=== PATIENT | female | born 1985 | race Caucasian/White ===

== ENCOUNTER 2022-03-10 11:15 | Outpatient (CLI) | payer MEDICAID, SELFPAY ==
[2022-03-11 11:37] LABS: Cortisol, Serum 8.1 ug/dL
== END 2022-03-10 11:16 | disposition home or self-care (01) ==
LOC: LKVLAB 11:16
PROVIDERS: PCP Physician Assistant Medical; Visit Provider Family Medicine
DX: R63.5 Abnormal weight gain (principal); Z79.52 Long term (current) use of systemic steroids
CPT/HCPCS: 36415; 82533

== ENCOUNTER 2022-04-21 13:06 | Outpatient (CLI) | payer MEDICAID, SELFPAY ==
[2022-04-22 15:46] LABS: Chlamydia DNA Amplified* NOT DETECTED (No Detected); GC DNA Amplified* NOT DETECTED (No Detected)
== END 2022-04-21 13:07 | disposition home or self-care (01) ==
LOC: LKVREF 13:07
PROVIDERS: PCP Physician Assistant Medical; Visit Provider Nurse Practitioner Family
DX: N89.8 Other specified noninflammatory disorders of vagina (principal)
CPT/HCPCS: 87491; 87591

== ENCOUNTER 2022-08-26 08:29 | Outpatient (CLI) | payer MEDICAID, SELFPAY ==
[2022-08-26 14:03] LABS: Albumin* 4.9 g/dL (3.3-5.0); Chloride* 106 mmol/L (96-114); Potassium* 4.4 mmol/L (3.6-5.1); Sodium* 141 mmol/L (135-149)
[2022-08-26 14:05] LABS: Aspartate Amino Transferase* 24 U/L (12-35); Bilirubin Total* 0.6 mg/dL (0.1-1.5); Carbon Dioxide* 23 mmol/L (20-32); Creatinine* 0.6 mg/dL (0.5-1.5); Estimated Glomerular Filt Rate 120 ml/min
[2022-08-26 14:06] LABS: Alanine Aminotransferase* 25 U/L (4-35); Alkaline Phosphatase* 54 U/L (40-150); Blood Urea Nitrogen* 7 mg/dL (5-24); Calcium* 9.8 mg/dL (8.4-10.6); Glucose* 83 mg/dL (60-115); Total Protein* 7.7 g/dL (6.0-8.3)
[2022-08-26 14:08] LABS: Vitamin D 25 Hydroxy* 17 ng/mL (30-80)
== END 2022-08-26 08:30 | disposition home or self-care (01) ==
PROVIDERS: PCP Physician Assistant Medical; Visit Provider Family Medicine
DX: E55.9 Vitamin D deficiency, unspecified (principal); F41.8 Other specified anxiety disorders; G89.29 Other chronic pain
CPT/HCPCS: 80053; 82306; 84443

== ENCOUNTER 2022-09-09 12:45 | Outpatient (CLI) | payer MEDICAID, SELFPAY | END 2022-09-09 12:46 | disposition home or self-care (01) | LOC: LKVREF 09-10 14:39 | PROVIDERS: PCP Physician Assistant Medical; Visit Provider Registered Nurse | DX: J02.0 Streptococcal pharyngitis (principal); R30.0 Dysuria | CPT/HCPCS: 87086 ==

== ENCOUNTER 2022-09-11 13:28 | Emergency (ER) | payer MEDICAID, SELFPAY ==
[2022-09-11 13:33] VITALS: BP 136/90; PULSE 106; RESP 22; TEMP 36.8; O2SAT 99; BMI 31.6
--- NOTE | 2022-09-11 13:45 | CRLHL7_ITS ---
For Patients: As a result of the Century Cures Act, medical imaging exams and procedure reports are released immediately into your electronic medical record. You may view this report before your referring provider. If you have questions, please contact your health care provider. INDICATION: COUGH TECHNIQUE: Chest 2 views. COMPARISON: 12/25/20 FINDINGS: Cardiovascular and mediastinum: Heart size and vasculature are normal in caliber and appearance. Mediastinum is within normal limits. Lungs and pleural spaces: Lungs are clear. No sign of infiltrate or mass. No sign of pleural effusion. No pneumothorax. Bones and soft tissues: No significant findings. IMPRESSION: Unremarkable chest. Dictated by: Claus Lassiter MD @ 09/11/2022 14:44:24 (Electronically Signed)
--- NOTE | 2022-09-11 13:45 | CRLHL7_ITS ---
For Patients: As a result of the Century Cures Act, medical imaging exams and procedure reports are released immediately into your electronic medical record. You may view this report before your referring provider. If you have questions, please contact your health care provider. INDICATION: Neck swelling, pain TECHNIQUE: CT soft tissue of the neck was acquired with 84 cc Isovue 370 intravenous contrast. COMPARISON: None FINDINGS: Included intracranial contents are unremarkable. The orbits are unremarkable. Paranasal sinuses are clear. Parotid and submandibular glands are unremarkable. Slight mucosal hyperemia of the level of the adenoids as well as at the level of the tonsillar pillars without a focal fluid collection. Mild peritonsillar fat stranding with jugular lymph nodes measuring up to 15 millimeters in short axis. Epiglottis unremarkable. Vocal cords are unremarkable. Thyroid gland unremarkable. Lung apices clear. IMPRESSION: 1. Nasopharyngeal hyperemia with striated appearance of the tonsillar pillars suggesting tonsillitis. No evidence of abscess. 2. Bilateral jugular adenopathy, likely reactive. Please note that all CT scans at this facility use dose modulation, iterative reconstruction, and/or weight-based dosing when appropriate to reduce radiation dose to as low as reasonably achievable. Dictated by Efrain Graff MD @ 09/11/2022 3:35:53 PM (Electronically Signed)
--- NOTE | 2022-09-11 13:59 | ED.GENADULT ---
HPI - General Adult General Chief complaint: Ear/Nose/Throat Problem Stated complaint: Strep Time Seen by Provider: 09/11/22 13:41 History of Present Illness HPI narrative: Pt is a 37 year old woman who was diagnosed with strep throat two days ago and was started on Pen VK. Pt comes in today with worsening pharyngitis with difficulty swallowing. Pt has no fevers or chills. She did have a productive cough earlier today which was positive for blood. She has had no shortness of breath or rash. No chest pain. Pt tested positive for COVID 19 last month. No mouth pain. No headaches, abd pain or dysuria. Pt is concerned that her throat is not feeling better although she has been taking the PCN. Pain is severe and localized to the posterior oropharynx. Pt has an IUD and does not believe that she is . Related Data Home Medications Medication Instructions Recorded Confirmed levonorgestrel 20 mcg/24 hours (8 1 device intrauterine ONCE 08/26/22 09/09/22 yrs) 52 mg intrauterine device (Mirena) Previous Rx's Medication Instructions Recorded fluconazole 150 mg tablet 150 mg PO ONCE #1 tab 04/21/22 albuterol sulfate 90 mcg/actuation 2 puff inhalation Q6H PRN 08/26/22 aerosol inhaler shortness of breath or wheezing #8.5 grams budesonide-formoterol HFA 160 2 puff inhalation BID #10.2 grams 08/26/22 mcg-4.5 mcg/actuation aerosol inhaler (Symbicort) gabapentin 300 mg capsule 300 mg PO QHS #30 caps 08/26/22 hydroxyzine HCl 25 mg tablet 25 mg PO TID PRN anxiety #60 tabs 08/26/22 prednisone 20 mg tablet 20 mg PO BID PRN asthma #10 tabs 08/26/22 duloxetine 30 mg capsule,delayed 30 mg PO BID #180 caps 09/04/22 release penicillin V potassium 500 mg 500 mg PO BID 10 days #20 tabs 09/09/22 tablet Allergies Allergy/AdvReac Type Severity Reaction Status Date / Time codeine Allergy Intermediate heaviness, Verified 09/09/22 12:48 tightness in chest Cat hair extract Allergy Unknown hives, Uncoded 09/09/22 12:48 trouble breathing Review of Systems Status of ROS: Reports: 10 or more systems reviewed and unremarkable except as noted in History and below PFSH PFSH Medical History Asthma Depression with anxiety Disorder of paranasal sinus Epidural hematoma History of mastitis History of pre-eclampsia History of spontaneous History of use of contraceptive intrauterine device (IUD) History of vaginal delivery History of varicella Influenza-like illness Insomnia due to Missed period (07/2016) Right wrist pain Serous otitis media Spontaneous Tobacco use (08/24/09) Surgical History History of spinal surgery (2014) History of third molar tooth extraction Family History Son Autism Maternal Grandmother Breast cancer Ovarian cancer Mother Stroke High blood pressure Family/Other High blood pressure Other Diabetes Social History Narrative: does not drink alcohol does not use illicit drugs history of tobacco use- quit with in 2017 Smoking Status: Current some day smoker Do you use any of these nicotine containing products: None How often do you have a drink containing alcohol: monthly or less How many standard drinks containing alcohol do you have on a typical day: 1 or 2 How often do you have six or more drinks on one occasion: Never AUDIT-C Alcohol total score: 1 Non-prescribed substance use: denies use service: No Exam Narrative: Exam Narrative: EXAM GENERAL: Patient appears comfortable and well. EYES: No scleral icterus. ENT: Tympanic membranes and oropharynx normal. Pharynx is acuetely injected with tonsillar enlargement with exudate. No obvious midline deviation. THYROID: no thyroid nodules or thyromegaly. LYMPH: No supraclavicular or cervical lymphadenopathy. SKIN: Visible skin seen during exam normal or with benign process only. EXT: No dependent lower extremity pedal edema. HEART: Regular rate and rhythm with no murmurs, rubs, or gallops. LUNGS: Clear to auscultation bilaterally with no crackles or wheezes. ABD: Soft, non tender, non distended. PSYCH: Good eye contact, speech is not pressured. Const: Vital Signs, click to edit/add: Vital Signs - 24 hr 09/11/22 13:33 Temperature 98.3 F Pulse Rate [Right Pulse Oximeter] 106 H Respiratory Rate 22 Blood Pressure [Ri ght Upper Arm] 136/90 H Pulse Oximetry 99 Oxygen Delivery Me thod Room Air Course Course Hospital Course: Pt seen and examined. CXR and CT of the neck soft tissue ordered. Viral swab collected. Reevaluation(s) Reevaluation #1: Pt CT shows no evidence of abscess, cxr normal upon my review. Viral testing all negative. Time: 16:00 Vital Signs Vital signs: Initial Vital Signs Temperature 98.3 F 09/11/22 13:33 Temperature Source Temporal Artery Scan 09/11/22 13:33 Pulse Rate 106 H 09/11/22 13:33 Respiratory Rate 22 09/11/22 13:33 Blood Pressure 136/90 H 09/11/22 13:33 Blood Pressure Mean 105 09/11/22 13:33 Blood Pressure Position Sitting 09/11/22 13:33 Pulse Oximetry 99 09/11/22 13:33 Oxygen Delivery Method 09/11/22 13:33 Vital Signs Temperature 98.3 F 09/11/22 13:33 Pulse Rate 106 H 09/11/22 13:33 Respiratory Rate 22 09/11/22 13:33 Blood Pressure 136/90 H 09/11/22 13:33 Pulse Oximetry 99 09/11/22 13:33 Oxygen Delivery Method 09/11/22 13:33 Temperature 98.3 F 09/11/22 13:33 Pulse Rate 106 H 09/11/22 13:33 Respiratory Rate 22 09/11/22 13:33 Blood Pressure 136/90 H 09/11/22 13:33 Pulse Oximetry 99 09/11/22 13:33 Oxygen Delivery Method 09/11/22 13:33 Medical Decision Making [facility] Narrative Medical decision making narrative: Pt is a 37 year old woman who presents two days after being diagnosed and started on Pcn VK for Strep Throat. Pt feels symptoms are not getting better. Pt had a CT of her neck soft tissue with IV contrast and a chest x ray both negative upon my review. Pt viral swab negative. Exam and vitals stable. Will finish PCN VK and add 5 days of prednisone to her regiment with PCP follow up. Differential Diagnosis Differential Diagnosis: Strep Throat, Abscess, Viral Syndrome, Pneumonia, Sinusitis, COVID, Influen Medical Records Medical records reviewed: Yes I reviewed the patient's medical records Lab Data Labs: Lab Results 09/11/22 Range/Units 14:00 SARS-CoV-2 (PCR) Negative SARS-CoV-2 (Negative) Influenza Type A (PCR) Negative PCR FLU A (Negative) Influenza Type B (PCR) Negative PCR FLU B (Negative) RSV (PCR) Negative PCR RSV (Negative) Discharge Plan Discharge Clinical Impression: Strep throat Condition: Stable Instructions: Strep Throat (ED) Additional Instructions: Continue current care with the addition of Prednisone for 5 days Follow up with PCP as needed Activity Level: No Restrictions Discharge Diet: Regular Prescriptions: No Action Mirena 20 mcg/24 hours (8 yrs) 52 mg intrauterine device 1 device intrauterine ONCE Rx Instructions: as a single dose budesonide-formoterol [Symbicort] 160-4.5 mcg/actuation HFA aerosol inhaler 2 puff inhalation BID Qty: 10.2 1RF hydroxyzine HCl 25 mg tablet 25 mg PO TID PRN (Reason: anxiety) Qty: 60 1RF gabapentin 300 mg capsule 300 mg PO QHS Qty: 30 1RF prednisone 20 mg tablet 20 mg PO BID PRN (Reason: asthma) Qty: 10 1RF albuterol sulfate 90 mcg/actuation HFA aerosol inhaler 2 puff inhalation Q6H PRN (Reason: shortness of breath or wheezing) Qty: 8.5 2RF penicillin V potassium 500 mg tablet 500 mg PO BID 10 Days Qty: 20 0RF fluconazole 150 mg tablet 150 mg PO ONCE Qty: 1 0RF Rx Instructions: as a single dose duloxetine 30 mg capsule,delayed release(DR/EC) 30 mg PO BID Qty: 180 0RF Follow Up/Referrals: Barbara Johnson [facility] [Physician Manager Training] - Stand Alone Forms: [facility] Info Instructions
[2022-09-11 14:51] LABS: PCR FLU A Negative PCR FLU A (Negative); PCR FLU B Negative PCR FLU B (Negative); PCR RSV Negative PCR RSV (Negative)
[2022-09-11 15:01] LABS: SARS PCR* Negative SARS-CoV-2 (Negative)
[2022-09-11 16:16] VITALS: BP 113/77; PULSE 92; RESP 16; TEMP 37.1; O2SAT 97
== END 2022-09-11 16:21 | disposition home or self-care (01) ==
PROVIDERS: Emergency Provider Internal Medicine; PCP Family Medicine
DX: J02.0 Streptococcal pharyngitis (principal)
CPT/HCPCS: 70491; 71046; 87502; 87634; 87635; 99283; 99284; 99285; Q9967

== ENCOUNTER 2022-11-04 15:37 | Outpatient (CLI) | payer MEDICAID, SELFPAY ==
[2022-11-04 22:42] LABS: Chlamydia DNA Amplified* NOT DETECTED (No Detected); GC DNA Amplified* NOT DETECTED (No Detected)
== END 2022-11-04 15:38 | disposition home or self-care (01) ==
PROVIDERS: PCP Family Medicine; Visit Provider Nurse Practitioner Family
DX: Z11.3 Encounter for screening for infections with a predominantly sexual mode of transmission (principal)
CPT/HCPCS: 0353U; 86592; 86703; 86706; 86803; 87340; 87491; 87591

== ENCOUNTER 2022-12-02 08:16 | Outpatient (CLI) | payer MEDICAID, SELFPAY ==
[2022-12-02 13:46] LABS: Chloride* 106 mmol/L (96-114); Sodium* 139 mmol/L (135-149)
[2022-12-02 13:49] LABS: Blood Urea Nitrogen* 7 mg/dL (5-24); Carbon Dioxide* 22 mmol/L (20-32); Cholesterol* 179 mg/dL (90-199); Creatinine* 0.7 mg/dL (0.5-1.5); Estimated Glomerular Filt Rate 116 ml/min; Glucose* 93 mg/dL (60-115); Triglycerides* 310 mg/dL (40-149)
[2022-12-02 13:50] LABS: Calcium* 9.4 mg/dL (8.4-10.6); HDL Cholesterol* 31 mg/dL (>=50); LDL Cholesterol Calculated 86 mg/dL (<100)
[2022-12-02 14:04] LABS: Potassium* 4.4 mmol/L (3.6-5.1)
== END 2022-12-02 08:17 | disposition home or self-care (01) ==
PROVIDERS: PCP Family Medicine; Visit Provider Family Medicine
DX: Z00.00 Encounter for general adult medical examination without abnormal findings (principal); E55.9 Vitamin D deficiency, unspecified; N39.0 Urinary tract infection, site not specified; R32 Unspecified urinary incontinence; Z11.3 Encounter for screening for infections with a predominantly sexual mode of transmission; Z11.59 Encounter for screening for other viral diseases; Z13.6 Encounter for screening for cardiovascular disorders
CPT/HCPCS: 80048; 80061; 86592; 86703; 86803; 87086

== ENCOUNTER 2022-12-16 08:00 | Outpatient (RCR) | payer MEDICAID, SELFPAY ==
--- NOTE | 2022-10-14 12:05 | PT.OPE ---
PT [facility] Out[facility] Eval PT [facility] Outpatient Eval Start: 10/14/22 10:10 Freq: Status: Active Protocol: Document 10/14/22 12:00 CJT (Rec: 10/14/22 12:05 CJT [email or web address]) E-signed By Markie Conti PT Physical Therapy Outpatient Evaluation Insurance Information Recert Due Date 12/12/22 Insurance Name Medicaid,[facility] Insurance Information/Comments [facility] Medicaid Medical Diagnosis M54.2 - cervicalgia Treating Diagnosis M54.6 - thoracic pain Referring Jose Irizarry PA-C Subjective Subjective Pt complains of pinching/ burning sensation in her R shoulder as well as a sensation of pressure. IBP/ Tylenol does not seem to help with the pain. Heat helps to reduce pain while she is using it but pain returns when she discontinues use. Pts pain is located at inferior medial border of her R scapula. Pt complains of headaches since she was young. Started when she was finishing puberty. Would have headaches that were so bad that she would vomit, had light sensitivity, and could help to reduce her headaches by squeezing the sides of her head. Pt reports that her HAs have improved much since her last . Tylenol seems to help reduce these enough to where they are manageable. 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 Precautions Treatment Precautions/Contraindications History of basilar skull fracture and T7 compression fracture (2008) Therapy Limitations/Systems Review Not Limited Objective Other/Pertinent Objective Cervical ROM Extension - 50 *pulling sensation in anterior neck and into R shoulder Flexion - 45 R/L Side Bend - 33/33 *pulling more on L than R R/L Rotation - 62/62 *pulling when looking to R R Shoulder ROM Flexion/Abduction/IR/ER - 160/ 160/T6/80 L Shoulder ROM Flexion/Abduction/IR/ER - 170/ 170/T5/80 Cervical Strength Extension - 5/5 MMT Flexion - 4/5 MMT R/L Side Bend - 5/5 MMT R/L Rotation - 5/5 MMT B R Shoulder Strength - 5/5 MMT for all L Shoulder Strength - 5/5 MMT for all R Scapular Strength Rhomboid - 4/5 MMT Mid Trap - 4/5 MMT Lower Trap - 4/5 MMT L Scapular Strength Rhomboid - 4/5 MMT Mid Trap - 4/5 MMT Lower Trap - 4/5 MMT Palpation: pt reports tenderness/pain with palpation to R>L suboccipitals, R SCM, pec minor, UT, levator, and lower trap Posture: thoracic kyphosis, slight forward rounding of shoulders Spurling's Compression: negative Crossover: negative Empty can: negative Joyner-Zack: negative Neers: negative Speeds: negative Assessment Assessment/Impression Pt is a 37 year old female who presents to OP PT clinic with complaints of R scapular pain . Pt describes her pain as a burning/pinching and is located at medial border of the scapula on R. Pt is waking frequently due to pain. Has a history of head and spine injuries and she does not tolerate laying on her back well due to increased low back pain. Pts cervical AROM is symmetrical and WFL but limitations are noted (see objective). Shoulder AROM is also WNL and strength is well- preserved although scapular strength is measured as 4/5 MMT throughout. Due to pts history of T7 compression fracture and other spine- related injuries/surgical history, I feel that much of Kaylee's pain is resulting from immobility in her mid- back as well as weakness in her scapular stabilizers. She tolerated the spine mobility exercises prescribed quite well today and notes that these all feel good. She will benefit from continued progression of spine mobility exercises as well as scapular stretching and strengthening. The nature of the pts condition was explained and all questions were answered to the pts satisfaction. Skilled PT services are medically necessary to address deficits and return patient to highest level of function. Recommend physical therapy sessions2 reducing to 1/week for 8 weeks . Pt has Thursday's off and otherwise works long hours so prefers to attend therapy sessions once weekly. We will assist her in scheduling 1/ week for the next 8 weeks. Printout of HEP was given for I completion and pt gives verbal understanding of each exercise. Primary Functional Limitations Sitting, standing, laying down Plan of Care Rehabilitation Potential Good Physical Therapy Goals STG - To be complete in 2-3 weeks: 1. Pt to report reduction in pain by factor of 2 so that she may work throughout the day with manageable pain. 2. Pt will report consistent performance of spine mobility exercises to facilitate movement and reduce achiness in her mid-back. LTG - To be completed in 8 weeks: 1. Pt to be I with HEP so that she may I manage progression of symptoms. 2. Pt will demo 5/5 MMT for all scapular motions B to allow for improved scapular/ shoulder coordination and reduce tissue tension in mid- scapular region. 3. Pt will report ability to sleep throughout the night without waking due to pain so that she may wake well rested with reduced mental fatigue during working hours. Treatment Plan/Direct Interventions Electrical Stimulation,Heat, Joint Mobilization,Manual Therapy,Self-Care/Home Management,Therapeutic Exercises Frequency/Duration 1/week for 8 weeks Patient Will Be Discharged From Therapy Completion of LTG(s),Skills Plateau,Independent w/HEP, Independently Progressing Evaluation Billing Untimed Code Treatment Minutes 45 PT Eval No Charge No Complexity Low Certification Information Initial Certification Date 10/14/22 Ending Certification Date 12/12/22 Provider Signature Shows Agreement With POC & Medical Necessity Physician Signature & Date Requested Please Sign/Date Here Physician Comment/Change : Physician NPI Number #
== END 2023-04-15 23:59 | disposition home or self-care (01) ==
PROVIDERS: PCP Family Medicine; Visit Provider Physician Assistant Surgical
DX: M54.2 Cervicalgia (principal); Z51.89 Encounter for other specified aftercare
CPT/HCPCS: 97110; 97140; 97161

== ENCOUNTER 2023-01-13 16:18 | Outpatient (CLI) | payer MEDICAID, SELFPAY | END 2023-01-13 16:19 | disposition home or self-care (01) | LOC: NFLDREF 01-14 06:24 | PROVIDERS: PCP Family Medicine; Referring Provider Family Medicine; Visit Provider Obstetrics & Gynecology | DX: N89.8 Other specified noninflammatory disorders of vagina (principal); Z11.3 Encounter for screening for infections with a predominantly sexual mode of transmission | CPT/HCPCS: 87491; 87591 ==

== ENCOUNTER 2023-02-03 10:00 | Outpatient (CLI) | payer MEDICAID, SELFPAY ==
--- NOTE | 2023-02-03 10:15 | CRLHL7_ITS ---
For Patients: As a result of the Century Cures Act, medical imaging exams and procedure reports are released immediately into your electronic medical record. You may view this report before your referring provider. If you have questions, please contact your health care provider. INDICATION: Low back pain. TECHNIQUE: Multiplanar multisequence noncontrast MR images acquired through the lumbar spine. COMPARISON: MRI lumbar spine 12/22/2014. FINDINGS: The lumbar lordosis is preserved. Slight left lumbar curvature. Vertebral heights maintained. No acute fracture. No T1 hypointense marrow replacing lesions or marrow edema. Normal conus terminates at L1-2. T12-L1 through L3-4: No spinal canal or neural foraminal narrowing. L4-5: Annular bulge. Minimal facet arthropathy. No spinal canal or neural foraminal narrowing. L5-S1: Postsurgical changes of remote left hemilaminectomy with significantly improved patency of the thecal sac and left lateral recess. Trace retrolisthesis. Worsening disc degeneration and disc height loss associated with minimal type 2 degenerative signal changes. Shallow posterior disc bulging and endplate spondylitic ridging. Minimal facet arthropathy. No spinal canal narrowing. Minimal bilateral neural foraminal narrowing. IMPRESSION: 1. At L5-S1, postsurgical changes of remote left hemilaminectomy. There is significantly improved patency of the thecal sac and left lateral recess compared to the prior MRI. The spinal canal is widely patent. Minimal bilateral neural foraminal narrowing. Worsening disc degeneration and disc height loss. 2. Minimal facet arthropathy in the lower lumbar spine. Dictated by Osmar Bryant MD @ 02/05/2023 7:31:59 AM (Electronically Signed)
== END 2023-02-03 10:01 | disposition home or self-care (01) ==
PROVIDERS: PCP Family Medicine; Visit Provider Orthopaedic Surgery
DX: M54.50 Low back pain, unspecified (principal)
CPT/HCPCS: 72148

== ENCOUNTER 2023-07-21 09:15 | Outpatient (RCR) | payer MEDICAID, SELFPAY | END 2023-10-21 11:01 | disposition home or self-care (01) | PROVIDERS: PCP Family Medicine; Visit Provider Orthopaedic Surgery | DX: M54.50 Low back pain, unspecified (principal); M54.2 Cervicalgia; Z51.89 Encounter for other specified aftercare | CPT/HCPCS: 97012; 97032; 97110; 97140; 97161 ==

== ENCOUNTER 2023-07-28 08:26 | Outpatient (CLI) | payer MEDICAID, SELFPAY | END 2023-07-28 08:27 | disposition home or self-care (01) | LOC: LKVREF 08:28 | PROVIDERS: PCP Family Medicine; Visit Provider Family Medicine | DX: Z20.6 Contact with and (suspected) exposure to human immunodeficiency virus [HIV] (principal) | CPT/HCPCS: 86703 ==

== ENCOUNTER 2023-08-12 21:08 | Emergency (ER) | payer MEDICAID, SELFPAY ==
[2023-08-12 21:31] VITALS: BP 169/94; PULSE 125; RESP 24; TEMP 37.8; O2SAT 92; BMI 35.3
[2023-08-12 22:34] LABS: PCR FLU A Negative PCR FLU A (Negative); PCR FLU B Negative PCR FLU B (Negative); PCR RSV POSITIVE PCR RSV (Negative)
[2023-08-12 22:36] LABS: SARS PCR* Negative SARS-CoV-2 (Negative)
--- NOTE | 2023-08-12 23:40 | ED_ITS ---
HPI - Fever General Time Seen by Provider: 23:41 Date Seen: 08/12/23 Chief Complaint: Fever Stated Complaint: Fever, cough, difficulty breathing Time Seen by Provider: 08/12/23 23:26 Source: patient and RN notes reviewed Mode of arrival: ambulatory Limitations: no limitations History of Present Illness HPI Narrative: This 38-year-old female is coming in with worsening respiratory symptoms. She has been sick with some symptoms since Thursday but today started with fevers. Last night she felt warm but thermometer was not working. At work today she did check her temperature and had a fever, temperatures have been 100-101. She does have a history of bronchospasm, did use albuterol nebs today. She started prednisone last night because of her symptoms. She has some nasal congestion, coughing. Cough is worsening, fevers are worsening. She has a sick child at home as well. Nursing staff collected a triple swab on her arrival, she is positive for RSV. We discussed antipyretic dosing, she would take a dose of Tylenol which I will order. She believes her prednisone is either a 5 her 7 day course that she has at home, again started last night. Related Data Home Medications Medication Instructions Recorded Confirmed levonorgestrel 21 mcg/24 hours (8 1 device intrauterine ONCE 08/26/22 08/12/23 yrs) 52 mg intrauterine device (Mirena) Previous Rx's Medication Instructions Recorded hydroxyzine HCl 25 mg tablet 25 mg PO TID PRN anxiety #60 tabs 12/02/22 cholecalciferol (vitamin D3) 250 250 mcg PO QDAY #90 caps 01/27/23 mcg (10,000 unit) capsule nortriptyline 25 mg capsule 25 mg PO QHS #90 caps 01/27/23 albuterol sulfate 1.25 mg/3 mL 1.25 mg (3 mL) inhalation QID PRN 07/28/23 solution for nebulization shortness of breath or wheezing #90 mL albuterol sulfate 90 mcg/actuation 2 puff inhalation Q6H PRN 07/28/23 aerosol inhaler shortness of breath or wheezing #8.5 grams budesonide-formoterol HFA 160 2 puff inhalation BID #10.2 grams 07/28/23 mcg-4.5 mcg/actuation aerosol inhaler (Symbicort) cyclobenzaprine 10 mg tablet 10 mg PO TID PRN muscle spasm #30 07/28/23 tabs hydrocodone 5 mg-acetaminophen 325 1 tab PO TID PRN pain #30 tabs 07/28/23 mg tablet prednisone 20 mg tablet 20 mg PO BID PRN asthma #10 tabs 07/28/23 duloxetine 60 mg capsule,delayed 60 mg PO BID #180 caps 08/20/23 release (Cymbalta) Allergies Allergy/AdvReac Type Severity Reaction Status Date / Time methylprednisolone Allergy Severe Chest Pain Verified 08/12/23 21:46 codeine Allergy Intermediate heaviness, Verified 08/12/23 21:46 tightness in chest Cat hair extract Allergy Unknown hives, Uncoded 07/28/23 07:50 trouble breathing Review of Systems Status of ROS Reports: 6 or more systems reviewed and unremarkable except as noted in History and below [facility] Medical History 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 ?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.6 - Contact with and (suspected) exposure to human immunodeficiency virus [HIV] (ICD-10) Chronic neck and back pain ?M54.2 - Cervicalgia (ICD-10) ?M54.9 - Dorsalgia, unspecified (ICD-10) ?G89.29 - Other chronic pain (ICD-10) Recurrent UTI (urinary tract infection) ?N39.0 - Urinary tract infection, site not specified (ICD-10) Abnormal Pap smear of cervix ?R87.619 - Unspecified abnormal cytological findings in specimens from cervix uteri (ICD-10) Asthma ?J45.909 - Unspecified asthma, uncomplicated (ICD-10) Insomnia ?G47.00 - Insomnia, unspecified (ICD-10) Depression with anxiety ?F41.8 - Other specified anxiety disorders (ICD-10) Tobacco use (08/24/09) ?Z72.0 - Tobacco use (ICD-10) Spontaneous ?O03.9 - Complete or unspecified spontaneous without complication (ICD-10) Serous otitis media ?H65.90 - Unspecified nonsuppurative otitis media, unspecified ear (ICD-10) Right wrist pain ?M25.531 - Pain in right wrist (ICD-10) ?Z34.90 - Encounter for supervision of normal , unspecified, unspecified trimester (ICD-10) Missed period (07/2016) ?N92.6 - Irregular menstruation, unspecified (ICD-10) due to ?Z39.1 - Encounter for care and examination of lactating mother (ICD-10) Influenza-like illness ?J11.1 - Influenza due to unidentified influenza virus with other respiratory manifestations (ICD-10) History of varicella ?Z86.19 - Personal history of other infectious and parasitic diseases (ICD- 10) History of vaginal delivery History of use of contraceptive intrauterine device (IUD) ?Z92.0 - Personal history of contraception (ICD-10) History of spontaneous ?Z87.59 - Personal history of other complications of , childbirth and the puerperium (ICD-10) History of pre-eclampsia ?Z87.59 - Personal history of other complications of , childbirth and the puerperium (ICD-10) History of mastitis ?Z87.898 - Personal history of other specified conditions (ICD-10) Epidural hematoma ?S06.4X9A - Epidural hemorrhage with loss of consciousness of unspecified duration, initial encounter (ICD-10) Disorder of paranasal sinus ?J34.9 - Unspecified disorder of nose and nasal sinuses (ICD-10) Surgical History History of third molar tooth extraction ?K08.409 - Partial loss of teeth, unspecified cause, unspecified class (ICD- 10) History of spinal surgery (2014) ?Z98.890 - Other specified postprocedural states (ICD-10) Family History Son Autism Maternal Grandmother Breast cancer Ovarian cancer Mother Stroke High blood pressure Skin cancer Family/Other High blood pressure Sister Autoimmune disorder Degenerative disc disease Other Diabetes Social History Narrative: does not drink alcohol does not use illicit drugs history of tobacco use- quit with in 2017 Smoking Status: Current every day smoker Do you use any of these nicotine containing products: None How often do you have a drink containing alcohol: monthly or less How many standard drinks containing alcohol do you have on a typical day: 1 or 2 How often do you have six or more drinks on one occasion: Never AUDIT-C Alcohol total score: 1 Non-prescribed substance use: denies use Little interest or pleasure in doing things: several days Feeling down, depressed, or hopeless: several days service: No Exam Const Vital Signs, click to edit/add: Vital Signs - 24 hr 08/12/23 21:31 Temperature 100.1 F H Pulse Rate [Pulse Oximeter] 125 H Respiratory Rate 24 Blood Pressure [Right Upper Arm] 169/94 H Pulse Oximetry 92 Oxygen Delivery Method Room Air Patient is a 38-year-old female that is coughing, voice is not hoarse. Cough does interrupt her speech but she is not tachypneic. Face is erythematous in flushed but no rash. Pupils are equal round, sclera clear, extraocular muscles intact. Oropharynx normal mucosa, no exudates or erythema. Neck is supple, no cervical adenopathy or masses. Lungs have definite crackles on right mid lung field, no wheezing heard. She is clear elsewhere. No tachypnea, no accessory muscle use. Documenting provider has reviewed patient's vital signs: yes Course Course ED Course: Will place patient on pulse oximetry. O2 sats on arrival were 92%. With patient being smoker, having RSV and history of bronchospasm, she certainly could be someone that might become hypoxic or worsen with this illness. She did start oral prednisone last night, does have albuterol nebs at home to support her should she be able to go home. With the crackles in the mid lung field posteriorly, do wonder about pneumonia. She has had respiratory symptoms since Thursday, just starting to worsen in developed a fever tonight which is Thursday, still potentially viral. Will give dose of Tylenol here, 1000 mg for fever control. She will get a portable chest x-ray just to ensure no developing pneumonia. Given that she is started prednisone last night, this is likely to interfere with evaluation of the CBC. Obtaining this was considered but do not think it is going to be excessively useful in the current situation. Reevaluation(s) Time of Reevaluation #1: 01:14 Reevaluation #1: Went in to talk to patient regarding her chest x-ray. My preliminary review is that there is no acute pathology on this, Radiology read is pending in there delayed this evening. She was sleeping, sleeping on her right side, she had oxygenation of 87-89% with very good waveform. She is not actively wheezing at this time, was resting with this O2 sat. When she did wake up, was doing a bit better. Will do a chest CT noncontrast. Did sign her out to Dr. Garcia. Decision was made to try DuoNeb. Vital Signs Vital signs: Initial Vital Signs Temperature 100.1 F H 08/12/23 21:31 Temperature Source Temporal Artery Scan 08/12/23 21:31 Pulse Rate 125 H 08/12/23 21:31 Respiratory Rate 24 08/12/23 21:31 Blood Pressure 169/94 H 08/12/23 21:31 Blood Pressure Mean 119 H 08/12/23 21:31 Blood Pressure Position Sitting 08/12/23 21:31 Pulse Oximetry 92 08/12/23 21:31 Oxygen Delivery Method Room Air 08/12/23 21:31 Vital Signs Temperature 100.1 F H 08/12/23 21:31 Pulse Rate 125 H 08/12/23 21:31 Respiratory Rate 24 08/12/23 21:31 Blood Pressure 169/94 H 08/12/23 21:31 Pulse Oximetry 92 08/12/23 21:31 Oxygen Delivery Method Room Air 08/12/23 21:31 Temperature 99.1 F 08/13/23 02:45 Pulse Rate 99 08/13/23 02:45 Respiratory Rate 22 08/13/23 02:46 Blood Pressure 131/77 08/13/23 02:45 Pulse Oximetry 96 08/13/23 02:46 Oxygen Delivery Method Room Air 08/13/23 02:46 Medications Administered Medications: Discontinued Medications Generic Name Dose Route Start Last Admin Trade Name Freq PRN Reason Stop Dose Admin Acetaminophen 1,000 mg 08/12/23 23:49 08/12/23 23:51 Acetaminophen 500 Mg Tablet PO 08/12/23 23:50 1,000 mg ONCE ONE Administration MDM - Fever Lab Data Attestation: I reviewed the patient's lab results. Labs: Lab Results 08/12/23 Range/Units 21:49 SARS-CoV-2 (PCR) Negative SARS-CoV-2 (Negative) Influenza Type A (PCR) Negative PCR FLU A (Negative) Influenza Type B (PCR) Negative PCR FLU B (Negative) RSV (PCR) POSITIVE PCR RSV A (Negative) Discharge Plan Discharge Clinical Impression: RSV (acute bronchiolitis due to respiratory syncytial virus) Patient Disposition: Home, Self-Care Condition: Stable Instructions: RSV (Respiratory Syncytial Virus) (ED) Additional Instructions: Continue your prednisone and inhalers as directed. Ibuprofen and/or Tylenol as needed for fever or aches. For worsening respiratory symptoms/shortness of breath return any time for re-evaluation. Primary care follow-up if not improved over the next 7-10 days. Prescriptions: No Action Mirena 20 mcg/24 hours (8 yrs) 52 mg intrauterine device 1 device intrauterine ONCE Rx Instructions: as a single dose budesonide-formoterol [Symbicort] 160-4.5 mcg/actuation HFA aerosol inhaler 2 puff inhalation BID Qty: 10.2 5RF albuterol sulfate 90 mcg/actuation HFA aerosol inhaler 2 puff inhalation Q6H PRN (Reason: shortness of breath or wheezing) Qty: 8.5 2RF albuterol sulfate 1.25 mg/3 mL solution for nebulization 1.25 mg inhalation QID PRN (Reason: shortness of breath or wheezing) Qty: 90 2RF prednisone 20 mg tablet 20 mg PO BID PRN (Reason: asthma) Qty: 10 1RF cyclobenzaprine 10 mg tablet 10 mg PO TID PRN (Reason: muscle spasm) Qty: 30 1RF hydrocodone-acetaminophen 5-325 mg tablet 1 tab PO TID PRN (Reason: pain) Qty: 30 0RF hydroxyzine HCl 25 mg tablet 25 mg PO TID PRN (Reason: anxiety) Qty: 60 1RF nortriptyline 25 mg capsule 25 mg PO QHS Qty: 90 3RF cholecalciferol (vitamin D3) 250 mcg (10,000 unit) capsule 250 mcg PO QDAY Qty: 90 1RF duloxetine [Cymbalta] 60 mg capsule,delayed release(DR/EC) 60 mg PO BID Qty: 180 0RF Follow Up/Referrals: Castillo Armenta MD [Primary Care Provider] - Stand Alone Forms: [employer] Info Instructions
[2023-08-12 23:51] VITALS: O2SAT 94
[2023-08-12] MEDS: ACETAMINOPHEN 500 MG TABLET 1000 MG PO (23:51)
--- NOTE | 2023-08-13 | CRLHL7_ITS ---
For Patients: As a result of the Cures Act, medical imaging exams and procedure reports are released immediately into your electronic medical record. You may view this report before your referring provider. If you have questions, please contact your health care provider. INDICATION: Cough, fever TECHNIQUE: Chest 1 view. Permanently recorded images are archived. COMPARISON: 09/11/2022 FINDINGS: Cardiovascular and mediastinum: Heart size and vasculature are normal in caliber and appearance. Lungs and pleural spaces: The lungs are clear. No pleural effusion or pneumothorax. Bones and soft tissues: Unremarkable for age. IMPRESSION: No evidence of an acute pulmonary process. Dictated by Abdulaziz Hankins MD @ 08/13/2023 1:58:44 AM (Electronically Signed)
--- NOTE | 2023-08-13 01:13 | CRLHL7_ITS ---
For Patients: As a result of the Cures Act, medical imaging exams and procedure reports are released immediately into your electronic medical record. You may view this report before your referring provider. If you have questions, please contact your health care provider. INDICATION: Hypoxia, RSV, fever. TECHNIQUE: CT chest without contrast. Permanently recorded images are archived. COMPARISON: Chest radiograph from the same day and chest CT 05/13/2021. FINDINGS: Lungs and pleura: Scattered tree-in-bud nodules throughout the lungs, the greatest in the right lower lobe. No pleural effusion or pneumothorax. Heart and vasculature: Heart size is normal. Thoracic aorta and pulmonary artery are normal in caliber. Lymph nodes/mediastinum: No mediastinal, hilar, or axillary adenopathy. Chest wall: No masses. Thyroid: Unremarkable. Upper abdomen: Hepatic steatosis. Bones: Unremarkable for age. IMPRESSION: 1. Findings most compatible with multilobar infectious bronchiolitis, greatest within the right lower lobe. 2. Hepatic steatosis. Please note that all CT scans at this facility use dose modulation, iterative reconstruction, and/or weight-based dosing when appropriate to reduce radiation dose to as low as reasonably achievable. Dictated by Abdulaziz Hankins MD @ 08/13/2023 2:33:41 AM (Electronically Signed)
[2023-08-13 01:20] VITALS: PULSE 104; RESP 18; TEMP 37.2; O2SAT 93
[2023-08-13 01:28] VITALS: BP 138/76; PULSE 108; RESP 20; O2SAT 94
[2023-08-13 02:45] VITALS: BP 131/77; PULSE 99; RESP 20; TEMP 37.3; O2SAT 95
[2023-08-13 02:46] VITALS: RESP 22; O2SAT 96
== END 2023-08-13 02:53 | disposition home or self-care (01) ==
PROVIDERS: Emergency Provider Family Medicine; PCP Family Medicine
DX: R05.9 Cough, unspecified (principal); B97.4 Respiratory syncytial virus as the cause of diseases classified elsewhere
CPT/HCPCS: 71045; 71250; 87631; 94761; 99284; 99285; A9270

== ENCOUNTER 2023-10-27 12:24 | Outpatient (CLI) | payer MEDICAID, SELFPAY | END 2023-10-27 12:25 | disposition home or self-care (01) | LOC: LKVREF 12:27 | PROVIDERS: PCP Family Medicine; Visit Provider Family Medicine | DX: R21 Rash and other nonspecific skin eruption (principal); R23.3 Spontaneous ecchymoses; Z20.6 Contact with and (suspected) exposure to human immunodeficiency virus [HIV] | CPT/HCPCS: 86039 ==

== ENCOUNTER 2024-01-28 08:07 | Outpatient (CLI) | payer MEDICAID, SELFPAY | END 2024-01-28 08:08 | disposition home or self-care (01) | PROVIDERS: PCP Family Medicine; Visit Provider Family Medicine | DX: D72.829 Elevated white blood cell count, unspecified (principal); R21 Rash and other nonspecific skin eruption | CPT/HCPCS: 80048; 80061; 82306; 86703 ==

== ENCOUNTER 2025-02-15 10:55 | Emergency (ER) | payer OTHER, SELFPAY ==
--- OUTSIDE RECORDS SUMMARY | 2015-02-22 02:23 | XMS_ITS | Continuity of Care Document ---
Author Organization [facility] Address [address] [place] [address] Phone Care Team Providers Care Computer Patternmaker Name Role Phone Vj PT PT, Misti Unavailable Unavailabl e Allergies, Adverse Reactions, Alerts Substance Reaction Status Criticality codeine Active No Information WARNIN allergy(ies) could not be collected because the type is not supported. Please contact the source practice for further details. Medications Medication Instructions Dosage Effective Dates (start - stop) Status Comments CLONAZEPAM (unknown strength) take 1 tablet by oral route every bedtime Not Available - Active nortriptyline 50 mg capsule take 1 capsule by ORAL route every bedtime 50 MG - Active ketoprofen 75 mg capsule take 1 capsule by oral route every 8 hours 75 MG - Active Procedures Procedure Date Est Pt Eval 25 Min Pain Assessment And Follow Up Plan Docum ented Psychotherapy, 45 minutes with patient o r family Inj Anes Epidur; Lumb/sac 1 Le 15 IV Cons Sed First 30M Inj Anes Epidur; Lumb/sac 1 Le 15 Inj Anes Epidur; Lumb/sac 1 Le 15 Mod cs by same phys, 5 yrs + Est Pt Eval 25 Min Pain Assessment And Follow Up Plan Docum ented Est Pt Eval 25 Min Pain Assessment And Follow Up Plan Docum ented Psychotherapy, 60 minutes with patient o r family Aquatic Therapy Aquatic Therapy Psychotherapy, 60 minutes with patient o r family Inj Not Lytic-epidur; Cerv/tho 15 Fluoro Guidance - Spine Epid/SAB Cerv/Thor Fluoroscopic Guidance For Needle Placeme nt - Spine Est Pt Eval 25 Min Pain Assessment And Follow Up Plan Docum ent Aquatic Therapy Aquatic Therapy Psychotherapy, 60 minutes with patient o r family Phys Therap Eval Therapeutic Activities Est Pt Eval 15 Min Pain Assessment And Follow Up Plan Docum [facility] Psychiatric Diagnostic Evaluation Psycho testing admin by comp Est Pt Eval 25 Min No Charge Inj Not Lytic-epidur; Lumb/sac 14 Est Pt Eval 15 Min Epid/SAB Lumbosacral Epidurography Inj Anes Epidur; Lumb/sac 1 Le 14 Inj Anes Epidur; Lumb/sac 1 Le 14 Epidurography Est Pt Eval 25 Min Inj Anes Epidur; Lumb/sac 1 Le 14 Est Pt Eval 25 Min Inj Anes Epidur; Lumb/sac 1 Le 14 Est Pt Eval 15 Min Est Pt Eval 25 Min Inj Anes Epidur; Lumb/sac 1 Le 14 Inj Anes Epidur; Lumb/sac 1 Le 14 Est Pt Eval 25 Min Epid/SAB Lumbosacral Epidurography Lo Osm Contr Mat (200-249mg) Depomedrol 80mg Offic Cons New/estab Mod-hi 60 14 Epid/SAB Cerv/Thor Epidurography Marcaine (1 mL = 1 Unit) Depomedrol 80mg Lo Osm Contr Mat (200-249mg) Needle Only Sterile Any Size Epidural Tray Loss Of Ressistance Syringe Offic Cons New/estab Mod 40 Mi 10 Advance Directives Directive Yes / No Effective Date File Name No Information Encounters Encounter Description Practice Location Reason(s) For Visit Diagnoses Date Provider Providers Copied on Encounter ALESHA Guo, [address], [place], [place], [address], tel:[phone] Daya Guo [facility] 7390 No Information 5 Barthold PT Misti. [address], [place], [address], [place]. tel:[phone] Referring Provider: Delfino Nieves, [address], [address]. tel:[phone] Est Pt Eval 25 Min [facility], [address], [place], [place], [address], [place] tel:[phone] [facility] No Information 5 Jim Alba. [address], [place], [address], [place]. tel:[phone] Referring Provider: Delfino Nieves, [place], [address]. tel:[phone] Psychotherap y, 45 minutes with patient or family ALESHA Guo, [address], [place], [place], [address], tel:[phone] Daya Guo [facility] 7390 No Information Apr-0 7-201 5 Samantha Andrew. [address], [place], [place], [address], [place]. tel:[phone] Referring Provider: Delfino Nieves, [address], [place], [address]. tel:[phone] [facility], [address], [place], [address], [place] tel:[phone] [facility] Daya No Information 0 3-201 5 Edyta Devlin. [address], [place], [place], [address], [place]. tel:[phone] Referring Provider: Claus Ndiaye, [address], [place], [address]. tel:[phone] [facility], [address], [place], [place], [address], [place] tel:[phone] [facility] No Information 0 3-201 5 Edyta Devlin. [address], [place], [place], [address], [place]. tel:[phone] Referring Provider: Delfino Nieves, [address], [place], [address]. tel:[phone] Est Pt Eval 25 Min [facility], [address], [place], [place], [address], [place] tel:[phone] [facility] No Information 2 0-201 5 Edyta Devlin. [address], [place], [place], [address], [place]. tel:[phone] Referring Provider: Delfino Nieves, [address], [place], [address]. tel:[phone] Est Pt Eval 25 Min [facility], [address], [place], [place], [address], [place] tel:[phone] [facility] No Information 5 Jim Alba. [address], [place], [place], [address], [place]. tel:[phone] Referring Provider: Delfino Nieves, [place], [address]. tel:[phone] Psychotherap y, 60 minutes with patient or family [facility], [address], [place], [place], [address], [place] tel:[phone] [facility] 7[facility] No Information 5 Samantha Morales. [address], [place], [place], [address], [place]. tel:[phone] Referring Provider: Delfino Nieves, [address], [place], [address]. tel:[phone] [facility], [address], [place], [place], [address], [place] tel:[phone] [facility] 7390 No Information 5 Rome Hawa. [address], [place], [place], [address], [place]. tel:[phone] Referring Provider: Delfino Nieves, [address] [place], [address]. tel:[phone] [facility], [address], [place], [place], [address], [place] tel:[phone] [facility] 7[facility] No Information 5 Rome Hawa. [address], [place], [place], [address], [place]. tel:[phone] Referring Provider: Delfino Nieves, [address] [place], [address]. tel:[phone] Psychotherap y, 60 minutes with patient or family [facility], [address], [place], [place], [address], [place] tel:[phone] [facility] 7390 No Information 5 Lexau Andrwe. [address], [place], [place], [address], [place]. tel:[phone] Referring Provider: Delfino Nivees, [address] [place], [address]. tel:[phone] [facility], [address], [place], [address], [place] tel:[phone] [facility] No Information 5 Rubén Gamble. [address], [place], [place], [address], [place]. tel:[phone] Referring Provider: Tye Montana, [address], [place], [address]. tel:[phone] [facility], [address], [place], [place], [address], [place] tel:[phone] [facility]a No Information 5 Rubén Gamble. [address], [place], [place], [address], [place]. tel:[phone] Referring Provider: Delfino Nieves, [place], [address]. tel:[phone] Est Pt Eval 25 Min [facility], [address], [place], [place], [address], [place] tel:[phone] [facility] No Information No Information Referring Provider: Delfino Nieves, [place], [address]. tel:[phone] [facility], [address], [place], [place], [address], [place] tel:[phone] [facility] No Information Rome Hawa. [address], [place], [place], [address], [place]. tel:[phone] Referring Provider: Delfino Nieves, [address] [place], [address]. tel:[phone] [facility], [address], [place], [place], [address], [place] tel:[phone] [facility] No Information Rome Hawa. [address], [place], [place], [address], [place]. tel:[phone] Referring Provider: Delfino Nieves, [address], [place], [address]. tel:[phone] Psychotherap y, 60 minutes with patient or family [facility], [address], [place], [place], [address], [place] tel:[phone] [facility] 7390 No Information Lexau Andrew. [address], [place], [place], [address], [place]. tel:[phone] Referring Provider: Delfino Nieves, [address] [place], [address]. tel:[phone] [facility], [address], [place], [place], [address], [place] tel:[phone] [facility] 7390 No Information 5 Driss PT, DPT Nicolette. [address], [place], [place], [address], [place]. tel:[phone] Referring Provider: Delfino Nieves, [place], [address]. tel:[phone] Est Pt Eval 15 Min [facility], [address], [place], [address], [place] tel:[phone] [facility] No Information 5 No Information Referring Provider: Delfino Nieves, [place], [address]. tel:[phone] Psychiatric Diagnostic Evaluation [facility], [facility], [address], [place], [address], [place] tel:[phone] [facility] 7390 No Information 4 Lexau Andrew. [address], [place], [address], [place]. tel:[phone] Referring Provider: Delfino Nieves, [place], [address]. tel:[phone] Est Pt Eval 25 Min [facility], [address], [place], [address], [place] tel:[phone] [facility] No Information 4 No Information Referring Provider: Delfino Nieves, [place], [address]. tel:[phone] [facility], [address], [address], [place] tel:[phone] [facility] No Information 4 Rubén Gamble. [address], [place], [place], [address], [place]. tel:[phone] Referring Provider: Jericho Encarnacion, [address] [facility], [place], [address]. tel:[phone] Est Pt Eval 15 Min [facility], [address], [place], [place], [address], [place] tel:[phone] [facility] No Information 4 No Information Referring Provider: Delfino Nieves, [address], [place], [address]. tel:[phone] [facility], [address], [place], [place], [address], [place] tel:[phone] [facility] No Information 4 Rubén Gamble. [address], [place], [place], [address], [place]. tel:[phone] Referring Provider: Delfino Nieves, [address], [place], [address]. tel:[phone] [facility], [address], [place], [address], [place] tel:[phone] [facility] No Information 4 Rubén Gamble. [address], [place], [place], [address], [place]. tel:[phone] Referring Provider: Tye Montana, [address], [place], [address]. tel:[phone] [facility], [facility], [address], [place], [place], [address], [place] tel:[phone] [facility] No Information 4 Rubén Tye. [address], [place], [place], [address], [place]. tel:[phone] Referring Provider: Delfino Nieves, [address], [place], [address]. tel:[phone] Est Pt Eval 25 Min [facility], [address], [place], [place], [address], [place] tel:[phone] [facility] No Information 4 No Information Referring Provider: Delfino Nieves, [address], [place], [address]. tel:[phone] [facility], [address], [place], [address], [place] tel:[phone] [facility] No Information 4 Lindsey HALL Carin. [address], [place], [place], [address], [place]. tel:[phone] Est Pt Eval 25 Min [facility], [address], [place], [place], [address], [place] tel:[phone] [facility] No Information 4 No Information Referring Provider: Delfino Nieves, [address], [place], [address]. tel:[phone] [facility], [address], [place], [place], [address], [place] tel:[phone] [facility] No Information 4 Lindsey JHA Carin. [address], [place], [place], [address], [place]. tel:[phone] Referring Provider: Delfino Nieves, [address], [address]. tel:[phone] Est Pt Eval 15 Min [facility], [address], [place], [place], [address], [place] tel:[phone] [facility] No Information 4 No Information Referring Provider: Delfino Nieves, [address] [place], [address]. tel:[phone] Est Pt Eval 25 Min [facility], [address], [place], [place], [address], [place] tel:[phone] [facility] No Information No Information Referring Provider: Delfino Nieves, [address] [place], [address]. tel:[phone] [facility], [address], [place], [address], [place] tel:[phone] [facility] No Information 4 No Information [facility], [address], [place], [place], [address], [place] tel:[phone] [facility] No Information 4 No Information Referring Provider: Delfino Nieves, [address], [address]. tel:[phone] Est Pt Eval 25 Min [facility], [address], [place], [place], [address], [place] tel:[phone] [facility] No Information 4 No Information Referring Provider: Delfino Nieves, [address], [address]. tel:[phone] [facility], [address], [place], [place], [address], tel:[phone] [facility] No Information 4 No Information Referring Provider: Delfino Nieves, [place], [address]. tel:[phone] Offic Cons New/estab Mod-hi 60 [facility], [address], [address], tel:[phone] [facility] No Information 4 Kenny Misti Thorne. [address] [place], [address], [place]. Referring Provider: Delfino Nieves, [place], [address]. [phone] [facility], [address] [facility] [address], [place], [address], tel:[phone] [facility] No Information 0 Joaquin Chen. [address] [place] [address], [address]. tel:[phone] Referring Provider: Delfino Nieves, [place], [address]. tel:[phone] Offic Cons New/estab Mod 40 Mi [facility], [address] [address], [place], [place], [address], [place] tel:[phone] [facility] No Information 0 Archana Kelly. [address] [address], [place], [address], [place]. tel:[phone] Referring Provider: Delfino Nieves, [place], [address]. tel:[phone] Family History Family Member Type Diagnosis Age At Onset Maternal aunt Problem (finding) cancer Payers Payer name Insurance type Covered constitution party ID Authoriza tion(s) FPA [facility] [id number] Social History Type Description Quantity Date Captured Comments Sex Female Smoking Status No Information Chief Complaint And Reason For Visit No Information Reason For Referral Reason For Referral No Information Plan Of Treatment Date Type Action Status Future Order: Lab Order Point Of Care Drug Testing (W/O THC) (POCT), Ordered on: Ordered History Of Present Illness Encounter Date Complaint History Of Prese nt Illness No Information Functional Status Date Functional Assessmen t No Information Instructions Date Instruction Additional Infor mation Epidural Steroid Injection educa tion Assessments Type Assessment Date No Information Patient Care Teams Name Effective Dates (start - stop) Status Members No Information
--- OUTSIDE RECORDS SUMMARY | 2025-02-15 10:57 | XMS_ITS | Clinical Summary ---
[facility] Organization [facility] Address [address] [place] [address] Care Team Providers Care Loan Teller Name Role Phone Unavailable Primary Care Provider Unavailabl e Source Comments You are receiving this document as you are listed as the primary care provider,follow-up provider, or the patient has been referred to you for consultation.This is in compliance with the Medicare andMedicaid EHR Incentive Program,which states Providers who transition their patient to another setting of careor provider of care or refers their patient to another provider of care shouldprovide summary care record for each transition of care or referral. [facility] Allergies Active Allergy Reactions Criticality Noted Date Comments Codeine Respiratory Distress High 04/27/2018 Other 04/27/2018 Cat and dog dander Medications levonorgestrel (MIRENA) 20 MCG/24HR IUD 1 Each by Intrauterine route once. Active Vit-Fe Fumarate-FA ( RX 1 OR) Active Family History Medical History Relation Name Comments Cancer, Skin Mother Relation Name Status Comments Father Alive Mother Alive Maternal Grandfather Alive Maternal Grandmother Alive Paternal Grandfather Alive Paternal Grandmother Alive Sister 1 Alive Sister 2 Alive Social History Tobacco Use Types Packs/Day Years Used Date Smoking Tobacco: Former Smokeless Tobacco: Never Comments No Sex and Gender Information Value Date Recorded Sex Assigned at Not on file Legal Sex Female 8:14 AM CDT Gender Identity Not on file Sexual Orientation Not on file Last Filed Vital Signs Vital Sign Reading Time Taken Comments Blood Pressure 128/72 04/27/2018 10:17 AM CDT Pulse 95 04/27/2018 10:17 AM CDT Temperature - - Respiratory Rate - - Oxygen Saturation - - Inhaled Oxygen Concentration - - Weight 78.6 kg (173 lb 3.2 oz) 04/27/2018 10:17 AM CDT Height 158.1 cm (5' 2.25) 04/27/2018 10:17 AM C DT Body Mass Index 31.42 04/27/2018 10:17 AM CDT Plan of Treatment Health Maintenance Due Date Last Done Comments Cervical Cancer Screening Due 1987 Hep C Screening (Preventive Services) 1987 HIV Screening (Preventive Services) 2003 Adult Preventive Visit 2005 HepB Vaccine (1) 2006 HPV Vaccine (3 - 3-dose series) 02/06/2010 11/14/2009, 06/19/2009 COVID-19 Vaccine (3 - season) 2024 11/21/2020, 10/18/2020 Influenza Vaccine (Season Ended) 2025 06/09/2014, 06/17/2013, 07/10/2008, Additional history exists DTaP/Tdap/Td Vaccine (3 - Tdap) 10/21/2027 10/20/2017, 06/09/2014 Zoster/Shingles Vaccine (1 of 2) 2037 HepA Vaccine Aged Out No longer eligi ble based on patient's age to complete this topic Hib Vaccine Aged Out No longer eligi ble based on patient's age to complete this topic IPV (Polio) Vaccine Aged Out No longe r eligible based on patient's age to complete this topic MCV4 Vaccine Aged Out No longer eligi ble based on patient's age to complete this topic Meningococcal B Vaccine Aged Out No l onger eligible based on patient's age to complete this topic Pneumococcal Vaccine Aged Out No long er eligible based on patient's age to complete this topic
--- OUTSIDE RECORDS SUMMARY | 2025-02-15 10:57 | XMS_ITS | Clinical Summary ---
Author Organization [facility] Address [address] [place] [id number] Care Team Providers Care Sample Color Maker Name Role Phone Castillo Armenta MD Primary Care Provider Katelin Fernandez Unavailable Katelin Fernandez Unavailable Allergies Active Allergy Reactions Criticality Noted Date Comments Codeine Anaphylaxis,Hives High 11/03/2013 Codeine High 04/27/2018 Other reaction(s): Respiratory Distress Seasonal Allergies 12/19/2014 Cat hair=trouble breathing Medications Nortriptyline HCl (NORTRIPYTLINE HCL PO) Take 50 mg by mouth At Bedtime Active KETOPROFEN PO Take 75 mg by mouth 3 times daily as needed Active LEVONORGESTREL IU Active Cholecalciferol (VITAMIN D3 PO) Take 1,000 Units by mouth daily Active ibuprofen (ADVIL,MOTRIN) 200 MG tablet Take 3 tablets (600 mg) by mouth every 6 hours as needed for mild pain or fever 60 tablet 0 04/24/2016 Active Active Problems Problem Noted Date Diagnosed Date Lumbar radiculopathy 12/28/2014 Back pain 12/22/2014 Racing heart beat 11/03/2013 Overview (11/03/2013): Or missed beat Chest pain 11/03/2013 Swollen feet 11/03/2013 Overview (11/03/2013): Ankles High blood pressure 11/03/2013 Shortness of breath 11/03/2013 Dizziness 11/03/2013 Persistent headaches 11/03/2013 Head injury 11/03/2013 Seizures 11/03/2013 Weakness of distal arms and legs 11/03/2013 Numbness and tingling 11/03/2013 Nausea & vomiting 11/03/2013 Back problem 11/03/2013 Vision problems 11/03/2013 Overview (11/03/2013): Wears glasses Family History Medical History Relation Comments Cancer Maternal Grandfather Cerebrovascular Disease Maternal Grandfather Hearing Loss Maternal Grandfather Heart Disease Maternal Grandfather High cholesterol Maternal Grandfather Cancer Maternal Grandmother Asthma Mother Cancer Mother Depression Mother Cerebrovascular Disease Other Arthritis Paternal Grandfather Cerebrovascular Disease Paternal Grandfather Arthritis Paternal Grandmother Cerebrovascular Disease Paternal Grandmother High cholesterol Paternal Grandmother Depression Sister Relation Status Comments Maternal Grandfather Maternal Grandmother Mother Other Paternal Grandfather Paternal Grandmother Sister Social History Tobacco Use Types Packs/Day Years Used Date Smoking Tobacco: Every Day Cigarettes 0.5 12 Alcohol Use Standard Drinks/Week Comments Yes 0 (1 standard drink = 0.6 oz pur e alcohol) very rarely Adolescent Education Answer Date Record ed Getting School Help Needed Not on file 05/16 Comments No Sex and Gender Information Value Date Recorded Sex Assigned at Female 01/19/2023 7:06 PM CDT Legal Sex Female 4:04 AM HR ASSISTANT Gender Identity Female 01/19/2023 7:06 PM CDT Sexual Orientation Straight 01/19/2023 7: 06 PM CDT Last Filed Vital Signs Vital Sign Reading Time Taken Comments Blood Pressure 121/79 06/22/2022 4:35 PM HR ASSISTANT Pulse 117 06/22/2022 4:40 PM HR ASSISTANT Temperature 37.2 C (99 F) 06/22/2022 2:21 PM HR ASSISTANT Respiratory Rate 17 06/22/2022 2:21 PM HR ASSISTANT Oxygen Saturation 97% 06/22/2022 4:40 PM HR ASSISTANT Inhaled Oxygen Concentration - - Weight 70.8 kg (156 lb) 04/24/2016 6:54 AM CDT Height 157.5 cm (5' 2) 04/24/2016 6:54 AM CDT Body Mass Index 28.53 04/24/2016 6:54 AM CDT Plan of Treatment Health Maintenance Due Date Last Done Comments ADVANCE CARE PLANNING 1987 ANNUAL REVIEW OF HM ORDERS 1987 YEARLY PREVENTIVE VISIT 1990 HIV SCREENING 2002 HEPATITIS C SCREENING 2005 HEPATITIS B VACCINE (1 of 3 - 19+ 3-dose series) 2006 PNEUMOCOCCAL VACCINE: PEDIAT RICS (0 to 5 YEARS) AND AT-RISK PATIENTS (6 to 49 YEARS) (1 of 2 - PCV) 2006 PAP 2008 DTAP/TDAP/TD VACCINE (1 - Tdap) 2012 BMP 12/29/2015 12/28/2014 DIABETES SCREENING 12/28/2017 12/28/2014 COVID-19 VACCINE (1 - 2023-2 5 season) 2024 PHQ-2 (once per calendar year) 2024 INFLUENZA VACCINE (Season Ended) 2025 06/30/20 07 ZOSTER VACCINE (1 of 2) 2037 HPV VACCINE Aged Out No longer eligi ble based on patient's age to complete this topic MENINGITIS VACCINE Aged Out No longer eligible based on patient's age to complete this topic Procedures Procedure Name Priority Date/Time Associated Diagnosis Comments BASIC METABOLIC PANEL STAT 12/28/2014 7:58 AM CDT from Last 3 Months or Most Recently Relevant to Health Maintenance Results * (ABNORMAL) Basic metabolic panel (BMP) (12/28/2014 7:58 AM CDT) Sodium 138 133 - 144 mmol/L [facility] Potassium 4.1 3.4 - 5.3 mmol/L [facility] Chloride 102 94 - 109 mmol/L [facility] Carbon Dioxide 30 20 - 32 mmol/L [facility] Anion Gap 6 3 - 14 mmol/L [facility] Glucose 114(H) 70 - 99 mg/dL [facility] Urea Nitrogen 14 7 - 30 mg/dL [facility] Creatinine 0.68 0.52 - 1.04 mg/dL [facility] GFR Estimate >90 Non GFR Calc >60 mL/min/1. 7m2 [facility] GFR Estimate If Black >90 GFR Calc >60 mL/min/1. 7m2 [facility] Calcium 9.1 8.5 - 10.1 mg/dL [facility] Blood specimen (specimen) 12/28/2014 7:58 AM CDT 12/28/2014 8:01 AM CDT us Abdulaziz Stover MD LAB - BLOOD ORDERABLES F inal Result [facility] [address] [place] [address], [facility] [phone] from Last 3 Months or Most Recently Relevant to Health Maintenance Insurance None (Work) [address] [place] [address] [facility] Advance Directives For more information, please contact: [phone] * Full Code (Latest Code Status on File) Date Activated Date Inactivated Comments 12/28/2014 3:34 PM 12/29/2014 4:18 PM * Full Code Date Activated Date Inactivated Comments 12/22/2014 7:56 PM 12/24/2014 3:24 PM Care Teams Sample Color Maker Relationship Specialty Start Date End Date Castillo Armenta MD [facility] [id number] [place] [id number] PCP - General Family Medicine 06/22/22 Katelin Fernandez [address] [address] Nurse Practitioner 06/22/22 Katelin Fernandez [address] [address] Nurse Practitioner 12/07/14
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
[2025-02-15 11:05] VITALS: BP 136/84; PULSE 104; RESP 16; TEMP 37.1; O2SAT 97; BMI 32.9
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
== END 2025-02-15 12:51 | disposition home or self-care (01) ==
PROVIDERS: Emergency Provider Emergency Medicine Emergency Medical Services; PCP Family Medicine
DX: M54.9 Dorsalgia, unspecified (principal)
CPT/HCPCS: 96372; 99284; J2270

== ENCOUNTER 2025-03-21 12:39 | Outpatient (CLI) | payer OTHER, SELFPAY | END 2025-03-21 12:40 | disposition home or self-care (01) | PROVIDERS: PCP Family Medicine; Visit Provider Family Medicine | DX: E55.9 Vitamin D deficiency, unspecified (principal); M25.50 Pain in unspecified joint; Z20.6 Contact with and (suspected) exposure to human immunodeficiency virus [HIV] | CPT/HCPCS: 80053; 80061; 86703 ==

== ENCOUNTER 2025-04-05 09:56 | Outpatient (CLI) | payer OTHER, SELFPAY ==
--- NOTE | 2025-04-05 10:15 | CRLHL7_ITS ---
For Patients: As a result of the Century Cures Act, medical imaging exams and procedure reports are released immediately into your electronic medical record. You may view this report before your referring provider. If you have questions, please contact your health care provider. Indication: Stenosis. Technique: Multiplanar, multisequence MRI of the lumbar spine was performed without intravenous contrast. Comparison: MRI lumbar spine 02/03/2023. Findings: There are 5 lumbar type vertebral segments identified. The vertebral body heights are maintained without evidence of fracture. There is no discrete T1 hypointense marrow infiltrating process. The conus medullaris terminates at L1, normal. Cauda equina appears unremarkable. T12-L1: No spinal canal or neural foraminal stenosis. L1-2: No spinal canal or neural foraminal stenosis. L2-3: No spinal canal or neural foraminal stenosis. L3-4: No spinal canal or neural foraminal stenosis. L4-5: No spinal canal or neural foraminal stenosis. L5-S1: Disc degeneration. Remote left hemilaminectomy. Shallow posterior disc bulging and endplate spondylitic ridging. No spinal canal narrowing. Shallow left foraminal disc protrusion may abut the exiting left L5 nerve. Stable. The visualized sacroiliac joints appear patent. Impression: 1. At L5-S1, remote left hemilaminectomy. No spinal canal narrowing. Stable shallow left foraminal disc protrusion may abut the exiting left L5 nerve. 2. The remaining lumbar levels appear unremarkable. Dictated by Tejinder Grace MD @ 04/05/2025 4:41:06 PM (Electronically Signed)
== END 2025-04-05 09:57 | disposition home or self-care (01) ==
LOC: MRI 09:56
PROVIDERS: PCP Family Medicine; Visit Provider Physician Assistant
DX: M48.061 Spinal stenosis, lumbar region without neurogenic claudication (principal); M51.26 Other intervertebral disc displacement, lumbar region
CPT/HCPCS: 72148

== ENCOUNTER 2025-06-19 13:20 | Outpatient (CLI) | payer OTHER, SELFPAY | END 2025-06-19 13:21 | disposition home or self-care (01) | LOC: NFLDREF 06-29 02:27 | PROVIDERS: PCP Family Medicine; Referring Provider Family Medicine; Visit Provider Family Medicine | DX: Z20.6 Contact with and (suspected) exposure to human immunodeficiency virus [HIV] (principal) | CPT/HCPCS: 86703 ==